=== PATIENT | female | born 1960 | race Caucasian/White ===

== ENCOUNTER 2019-06-28 19:51 | Emergency (ER) | payer SELFPAY ==
[~2019-06-28] VITALS: Ht 167.6 cm; Wt 104.3 kg
[2019-06-28] MEDS ORDERED: IBUPROFEN 600 MG TAB PO ONE (20:15)
[2019-06-28 21:55] VITALS: BP 121/64
== END 2019-06-28 22:17 | disposition home or self-care (01) ==
LOC: ER 19:52
DX: M54.16 Radiculopathy, lumbar region (principal); Z88.8 Allergy status to other drugs, medicaments and biological substances
CPT/HCPCS: 72100